=== PATIENT | male | born 1995 | race Caucasian/White ===

== ENCOUNTER 2018-03-20 08:53 | Emergency (ER) | payer BC ==
[2018-03-20] MEDS ORDERED: HYDROmorphone 1 MG/ML Syringe IVPUSH ONE ×2 (09:11→10:09)
[2018-03-20] MEDS ORDERED: Ondansetron 4 MG/2 ML SDV IVPUSH ONE (09:11)
[2018-03-20] MEDS ORDERED: Tamsulosin 0.4 MG Cap.ER PO ONE (09:11)
[2018-03-20] MEDS ORDERED: Sodium Chloride 0.9% 1,000 ML IV ONE (09:13)
--- NOTE | 2018-03-20 09:15 | EDM.PDOC ---
ED HPI GENERAL MEDICAL PROBLEM - General Chief Complaint: Flank Pain Stated Complaint: PAIN ON LT SIDE OF BACK Time Seen by Provider: 03/20/18 09:12 - History of Present Illness INITIAL COMMENTS - FREE TEXT/NARRATIVE: HISTORY AND PHYSICAL: History of present illness: Patient's a 22-year-old white male presents with concern of acute left flank pain that occurred earlier today with associated nausea but no vomiting he denies trauma denies fever chills denies history of urolithiasis denies chest pain source breath or other concern. Review of systems: As per history of present illness and below otherwise all systems reviewed and negative. Past medical history: As per history of present illness and as reviewed below otherwise noncontributory. Surgical history: As per history of present illness and as reviewed below otherwise noncontributory. Social history: No reported history of drug or alcohol abuse. Family history: As per history of present illness and as reviewed below otherwise noncontributory. Physical exam: HEENT: Atraumatic, normocephalic, pupils reactive, negative for conjunctival pallor or scleral icterus, mucous membranes moist, throat clear, neck supple, nontender, trachea midline. Lungs: Clear to auscultation, breath sounds equal bilaterally, chest nontender. Heart: S1S2, regular, negative for clicks, rubs, or JVD. Abdomen: Soft, nondistended, nontender. Negative for masses or hepatosplenomegaly. Left-sided costovertebral tenderness. Pelvis: Stable nontender. Genitourinary: Deferred. Rectal: Deferred. Extremities: Atraumatic, negative for cords or calf pain. Neurovascular unremarkable. Neuro: Awake, alert, oriented. Cranial nerves II through XII unremarkable. Cerebellum unremarkable. Motor and sensory unremarkable throughout. Exam nonfocal. Diagnostics: CBC CMP UA and UDS CT abdomen and pelvis Therapeutics: Saline 1 L bolus Dilaudid 1 mg IV Zofran 4 mg IV Flomax 0.4 mg by mouth Impression: #1 acute left flank pain Definitive disposition and diagnosis as appropriate pending reevaluation and review of above. Left flank pain Pain Score (Numeric/FACES): 10 - Related Data Allergies Allergy/AdvReac Type Severity Reaction Status Date / Time ibuprofen Allergy Swollen Verified 03/20/18 08:56 Tongue Home Meds: Home Meds . [No Known Home Meds] 03/20/18 [History] Past Medical History - Past Health History Medical/Surgical History: Denies Medical/Surgical History Social & Family History - Family History Family Medical History: Noncontributory - Tobacco Use Smoking Status *Q: Never Smoker - Recreational Drug Use Recreational Drug Use: No ED ROS GENERAL - Review of Systems Review Of Systems: ROS reveals no pertinent complaints other than HPI. ED EXAM, GENERAL - Physical Exam Exam: See Below (See dictation) Course - Vital Signs Text/Narrative:: Patient's course in the emergency department is unremarkable pain is been well controlled he will be discharged with urology referral on Flomax, hydrocodone and Zofran and is to return as needed as discussed. Last Recorded V/S: Last Vital Signs Temp 35.6 C 03/20/18 08:57 Pulse 75 03/20/18 08:57 Resp 16 03/20/18 08:57 BP 127/62 03/20/18 08:57 Pulse Ox 100 03/20/18 08:57 - Orders/Labs/Meds Orders: Active Orders 24 hr Category Date Time Status DRUG SCREEN, URINE [URCHEM] Stat Lab 03/20/18 09:11 Ordered UA W/MICROSCOPIC [URIN] Stat Lab 03/20/18 09:11 Ordered Labs: Laboratory Tests 03/20/18 03/20/18 Range/Units 09:02 09:02 WBC 11.12 H (4.0-11.0) K/uL RBC 4.65 (4.50-5.90) M/uL Hgb 13.3 (13.0-17.0) g/dL Hct 38.6 (38.0-50.0) % MCV 83.0 (80.0-98.0) fL MCH 28.6 (27.0-32.0) pg MCHC 34.5 (31.0-37.0) g/dL RDW Std Deviation 38.0 (28.0-62.0) fl RDW Coeff of Oscar 13 (11.0-15.0) % Plt Count 262 (150-400) K/uL MPV 10.90 (7.40-12.00) fL Neut % (Auto) 51.7 (48.0-80.0) % Lymph % (Auto) 40.2 H (16.0-40.0) % [place] % (Auto) 7.2 (0.0-15.0) % Eos % (Auto) 0.6 (0.0-7.0) % Baso % (Auto) 0.3 (0.0-1.5) % Neut # (Auto) 5.8 H (1.4-5.7) K/uL Lymph # (Auto) 4.5 H (0.6-2.4) K/uL [place] # (Auto) 0.8 (0.0-0.8) K/uL Eos # (Auto) 0.1 (0.0-0.7) K/uL Baso # (Auto) 0.0 (0.0-0.1) K/uL Nucleated RBC % 0.0 /100WBC Nucleated RBCs # 0 K/uL Sodium 141 (136-148) mmol/L Potassium 3.0 L (3.5-5.1) mmol/L Chloride 105 (98-107) mmol/L Carbon Dioxide 24.7 (21.0-32.0) mmol/L BUN 14 (7.0-18.0) mg/dL Creatinine 0.8 (0.8-1.3) mg/dL Est Cr Clr Drug Dosing TNP Estimated GFR (MDRD) > 60.0 ml/min Glucose 131 H (74-106) mg/dL Calcium 9.7 (8.5-10.1) mg/dL Total Bilirubin 0.3 (0.2-1.0) mg/dL AST 27 (15-37) IU/L ALT 66 H (14-63) IU/L Alkaline Phosphatase 146 H (46-116) U/L Total Protein 6.8 (6.4-8.2) g/dL Albumin 3.4 (3.4-5.0) g/dL Globulin 3.4 (2.6-4.0) g/dL Albumin/Globulin Ratio 1.0 (0.9-1.6) Meds: Medications Discontinued Medications Generic Name Dose Route Start Last Admin Trade Name Freq PRN Reason Stop Dose Admin Hydromorphone HCl 1 mg 03/20/18 09:11 03/20/18 09:18 Dilaudid IVPUSH 03/20/18 09:12 1 mg ONETIME ONE Administration Hydromorphone HCl 1 mg 03/20/18 10:09 03/20/18 10:13 Dilaudid IVPUSH 03/20/18 10:10 1 mg ONETIME ONE Administration Sodium Chloride 1,000 mls @ 999 mls/hr 03/20/18 09:13 03/20/18 09:16 Normal Saline IV 03/20/18 10:13 999 mls/hr .Bolus ONE Administration Ondansetron HCl 4 mg 03/20/18 09:11 03/20/18 09:17 Zofran IVPUSH 03/20/18 09:12 4 mg ONETIME ONE Administration Tamsulosin HCl 0.4 mg 03/20/18 09:11 03/20/18 09:22 Flomax PO 03/20/18 09:12 0.4 mg ONETIME ONE Administration Departure - Departure Time of Disposition: 10:27 Disposition: Home, Self-Care 01 Condition: Good Clinical Impression: Ureteric colic, Ureterolithiasis - Discharge Information Forms: ED Department Discharge Additional Instructions: The following information is given to patients seen in the emergency department who are being discharged to home. This information is to outline your options for follow-up care. We provide all patients seen in our emergency department with a follow-up referral. The need for follow-up, as well as the timing and circumstances, are variable depending upon the specifics of your emergency department visit. If you don't have a primary care physician on staff, we will provide you with a referral. We always advise you to contact your personal physician following an emergency department visit to inform them of the circumstance of the visit and for follow-up with them and/or the need for any referrals to a consulting specialist. The emergency department will also refer you to a specialist when appropriate. This referral assures that you have the opportunity for followup care with a specialist. All of these measure are taken in an effort to provide you with optimal care, which includes your followup. Under all circumstances we always encourage you to contact your private physician who remains a resource for coordinating your care. When calling for followup care, please make the office aware that this follow-up is from your recent emergency room visit. If for any reason you are refused follow-up, please contact the [facility] emergency department at and asked to speak to the emergency department charge nurse. [facility] - Urology [address] [place], [place] [id number] Hydrocodone Flomax Zofran as prescribed follow-up urology clinic above call to schedule appointment return as needed as discussed push fluids - My Orders Last 24 Hours: My Active Orders 03/20/18 09:11 DRUG SCREEN, URINE [URCHEM] Stat UA W/MICROSCOPIC [URIN] Stat - Assessment/Plan Last 24 Hours: My Active Orders 03/20/18 09:11 DRUG SCREEN, URINE [URCHEM] Stat UA W/MICROSCOPIC [URIN] Stat
[2018-03-20 09:37] LABS: CHLORIDE,CL 105 mmol/L (98-107); SODIUM,NA 141 mmol/L (136-148)
--- NOTE | 2018-03-20 09:54 | CT ---
CT of the abdomen and pelvis without contrast. HISTORY: Pain TECHNIQUE: Axial CT images were obtained of the abdomen and pelvis without contrast. Coronal and sagittal reconstructions obtained. FINDINGS: The lung bases are clear, no pleural effusion. The liver, spleen, adrenal glands, and pancreas appear unremarkable for noncontrast examination. The gallbladder appears normal. There is no bulky retroperitoneal lymphadenopathy. No abdominal ascites. There is a tiny 1 to 2 mm stone at the left ureterovesicular junction with minimal proximal hydronephrosis. The large and small bowel are normal in caliber without evidence of obstruction. The appendix appears normal. There is no bulky pelvic lymphadenopathy. No free fluid. No free air. The urinary bladder appears normal. The visualized osseous structures appear normal. IMPRESSION: 1. Tiny 1 to 2 mm obstructing stone at the left ureterovesicular junction with minimal proximal hydronephrosis.
== END 2018-03-20 10:50 | disposition home or self-care (01) ==
LOC: MW.ED 08:53
DX: N13.2 Hydronephrosis with renal and ureteral calculous obstruction (principal); Z88.6 Allergy status to analgesic agent
CPT/HCPCS: 36415; 74176; 80053; 85025; 96361; 96374; 96375; 96376; 99284; A9270; J1170; J2405; J7040